=== PATIENT | male | born 1965 | race Caucasian/White ===

== ENCOUNTER 2024-06-13 14:57 | Emergency (ER) | payer BC, SELFPAY ==
[2024-06-13 15:00] VITALS: BP 159/107
[2024-06-13 15:15] LABS: % Basophils 0.9 % (0-2); % Eosinophils 3.6 % (0-6); % Immature Granulocytes 0.4 % (0-0.5); % Lymphocytes 21.8 % (20.5-51.1); % Neutrophils 65.3 % (42.2-75.2); Absolute Basophils 0.1 10^3/uL (0-0.2); Absolute Eosinophils 0.2 10^3/uL (0-0.7); Absolute Lymphocytes 1.5 10^3/uL (1.2-3.4); Absolute Monocytes 0.5 10^3/uL (0.1-0.6); Absolute Neutrophils 4.4 10^3/uL (1.4-6.5); Hematocrit 41.4 % (39.0-52.0); Hemoglobin 14.9 g/dL (13.0-18.0); Mean Platelet Volume 10.2 fL (7.4-10.4); Nucleated Red Blood Cells % 0 % (-); Platelet Count 343 10^3/uL (130-400); Red Blood Cell Count 4.65 10^6/uL (4.70-6.10); Red Cell Dist. Width 12.4 % (11.5-14.5); White Blood Cell Count 6.7 10^3/uL (4.8-10.8)
[2024-06-13 15:29] LABS: ALT (SGPT) 34 U/L (0-50); AST (SGOT) 28 U/L (17-59); Albumin 4.9 g/dl (3.5-5.0); Alkaline Phosphatase 56 U/L (38-126); Blood Urea Nitrogen 14 mg/dl (9-20); Calcium 9.5 mg/dl (8.4-10.2); Carbon Dioxide 29 mmol/L (22-30); Chloride 94 mmol/L (98-107); Glucose 206 mg/dl (70-99); Potassium 4.5 mmol/L (3.5-5.1); Sodium 134 mmol/L (135-145); Total Bilirubin 0.7 mg/dl (0.2-1.3); Total Protein 7.4 g/dl (6.3-8.2); eGFR > 60.00
[2024-06-13 15:40] LABS: Troponin I < 0.012 ng/ml
--- NOTE | 2024-06-13 17:16 | ED.GENMED ---
History of Present Illness
General
Chief Complaint: Musculo-Skeletal Complaint
Time Seen by Provider: 06/13/24 16:39
History of Present Illness
History of Present Illness:
58-year-old male presents to the emergency department for evaluation of left trapezius pain rating to the left shoulder and left arm ongoing for the past 3 weeks, describes intermittent paresthesias as well. No chest pain or shortness of breath.
No fevers or chills. Denies any known trauma or injuries
Past History
Past History
ED Past Medical History: None
ED Past Surgical History: None
Social History
Tobacco: Smoker
Personal: Single
Living: with family
Review of Systems
Review of Systems
Allergies reviewed?: Yes
All Other Systems: ROS reviewed and negative except as documented in HPI and ROS
Phy Exam
Physical Exam
Physical Exam:
GEN: Well appearing, NAD, WDWN
HEENT: Oral mucosa moist, no scleral icterus
Cardiac: Regular rate and rhythm, no murmurs
Lung: No respiratory distress, no tachypnea
MSK: No gross deformity or injuries. Normal range of motion of the left shoulder, bilateral upper extremity strength and sensation 5/5 in all matos
Skin: Good color, no pallor or jaundice, no rashes
Neuro: AO x3, moves all extremities freely
Psych: Calm, cooperative
Course
Orders/Labs/Results
Orders:
Orders
06/13/24 14:59
Electrocardiogram (*1) Urgent
Reason for Study: Other
Other Reason for Exam: left arm tingling
EKG- Treatment ONCE
06/13/24 15:09
Complete Blood Count/With Diff Urgent
Comprehensive Metabolic Panel Urgent
Troponin I Urgent
Abnormal Lab Results
06/13/24
15:09
RBC 4.65 L 10^6/uL
(4.70-6.10)
MCH 32.0 H pg
(27.0-31.0)
Sodium 134 L mmol/L
(135-145)
Chloride 94 L mmol/L
(98-107)
Glucose 206 H mg/dl
(70-99)
06/13/24 15:09
06/13/24 15:09
Vital Signs
Initial and Last Documented VS:
Initial Vital Signs
Temp Pulse Resp Pulse Ox
97.8 F 88 18 97
06/13/24 14:59 06/13/24 14:59 06/13/24 14:59 06/13/24 14:59
Last Documented Vital Signs
Temp Pulse Resp BP Pulse Ox
97.8 F 64 18 159/107 100
06/13/24 14:59 06/13/24 15:00 06/13/24 15:00 06/13/24 15:00 06/13/24 15:00
MDM/Problems Addressed
MDM/Problems Addressed:
Workup is reassuring, the patient's symptoms are most likely cervical radiculopathy or brachial neuritis, low clinical suspicion for cardiovascular disease, as he has been taking NSAIDs without improvement we will trial a course of steroids
*Critical Care Note
Total Time (30-74mins, 75-104mins- exclusive of procedures): Not Applicable
ED Attending Note
-
Portions of this chart may have been created with voice recognition software.� Occasional wrong word or��sound alike� substitutions may have occurred due to the inherent limitations of voice recognition software.
Discharge Plan
Departure
Patient Disposition: Home (Routine Discharge)
Date of Disposition: 06/13/24
Time of Disposition: 17:17
Patient with high blood pressure during this ER visit?: No
Discharge Problem:
Brachial neuritis
Instructions: Radiculopathy (DC)
Prescriptions:
New
methylprednisolone [Methylpred DP] 4 mg tablets,dose pack
See Rx Instructions .ROUTE .COMPLEX Qty: 21 0RF
Rx Instructions:
orally per package directions
No Action
cephalexin 500 MG capsule
500 mg PO QID Qty: 40 0RF
Ativan: 5 MG
5 mg PO DAILY
Prozac: 40 MG
40 mg PO DAILY
tramadol 50 MG tablet
50 mg PO Q6HPRN PRN (Reason: pain) Qty: 12 0RF
Referrals:
Alejo Blakely DO [Family Provider] -
Interventions
Interventions:
*Risk Screen - Suicide Last Done: 06/13/24 15:02
*General Assessment Last Done: 06/13/24 15:02
*Neglect/Abuse Screening Last Done: 06/13/24 15:02
ED- Fall Risk Assessment Last Done: 06/13/24 17:26
*ED COVID-19 Vaccine History Last Done: 06/13/24 16:55
*Nursing Disposition Last Done: 06/13/24 17:26
ED-Musculoskeletal Assessment Last Done: 06/13/24 16:55
Discharge Date and Time
Discharge Date/Time: 06/13/24 17:26
Print Language: SURINAMESE
== END 2024-06-13 17:26 | disposition home or self-care (01) ==
LOC: EMR 14:57
PROVIDERS: Student in an Organized Health Care Education/Training Program; EMERGENCY PHYSICIAN Emergency Medicine; FAMILY PHYSICIAN Family Medicine
DX: M54.12 Radiculopathy, cervical region (principal); F17.200 Nicotine dependence, unspecified, uncomplicated
CPT/HCPCS: 99283; 80053; 84484; 85025; 93005

== ENCOUNTER 2024-12-14 18:06 | Inpatient (IN) | payer BC, SELFPAY ==
[2024-12-14] VITALS (18 sets, daily range): BP systolic 100–159; BP diastolic 62–118; BMI 25.2; BMI 24.2
[2024-12-14 13:53] LABS: % Basophils 0.5 % (0-2); % Eosinophils 0.4 % (0-6); % Immature Granulocytes 0.5 % (0-0.5); % Lymphocytes 11.6 % (20.5-51.1); % Monocytes 7.1 % (1.7-9.3); % Neutrophils 79.9 % (42.2-75.2); Absolute Basophils 0.1 10^3/uL (0-0.2); Absolute Eosinophils 0.1 10^3/uL (0-0.7); Absolute Immature Granulocytes 0.1 10^3/uL (0-0.05); Absolute Lymphocytes 1.3 10^3/uL (1.2-3.4); Absolute Monocytes 0.8 10^3/uL (0.1-0.6); Hematocrit 45.4 % (39.0-52.0); Hemoglobin 16.8 g/dL (13.0-18.0); Mean Corpuscular Volume 89.2 fL (80.0-94.0); Mean Platelet Volume 10.8 fL (7.4-10.4); Nucleated Red Blood Cells % 0 % (-); Platelet Count 415 10^3/uL (130-400); Red Blood Cell Count 5.09 10^6/uL (4.70-6.10); Red Cell Dist. Width 11.9 % (11.5-14.5); White Blood Cell Count 11.3 10^3/uL (4.8-10.8)
[2024-12-14 14:03] LABS: Acetaminophen < 10 ug/ml (10-30); Blood Urea Nitrogen 17 mg/dl (9-20); Calcium 10.1 mg/dl (8.4-10.2); Carbon Dioxide 22 mmol/L (22-30); Chloride 97 mmol/L (98-107); Estimated Creatinine Clearance 80 ml/min; Glucose 251 mg/dl (70-99); Potassium 4.3 mmol/L (3.5-5.1); Salicylate < 1.0 mg/dl (2.0-20.0); Sodium 132 mmol/L (135-145); eGFR > 60.00
[2024-12-14 14:07] LABS: Alcohol None Detected
[2024-12-14] MEDS: CARDIZEM 20 MG IV (14:08)
--- NOTE | 2024-12-14 14:31 | ED.GENMED ---
History of Present Illness
<Luna Santos DO - Last Filed: 12/16/24 06:15>
General
Chief Complaint: Crisis Evaluation
Time Seen by Provider: 12/14/24 13:28
History of Present Illness
History of Present Illness:
59-year-old male with history of hyperlipidemia and prediabetes presenting to the emergency department for lightheadedness and pressure in his head. Reports that he was in the shower today and felt pressure behind his head and also felt lightheaded
like he was going to pass out. He got out of the shower, went to [facility] [place], and had to hold onto the wall to help him ambulate. He went home and felt that symptoms were improving, so came to the hospital. Does admit to drinking some alcohol last
evening, however only 3 beers. Denies any alcohol ingestion today. Denies any chest pain or difficulty breathing. Denies palpitations. Denies abdominal pain or GI symptoms. Denies any known cardiac issues. Additionally notes that he lost his
job unexpectedly 3 days ago so has been having depressive thoughts and suicidal ideations. On Saturday evening, was thinking about killing himself, however called for help and was given outpatient resources which she has not yet established. He
notes that he is feeling better from a mental health perspective. Denies additional acute medical complaints
Past History
<Luna Santos DO - Last Filed: 12/16/24 06:15>
Past History
ED Past Medical History: None
ED Past Surgical History: None
Social History
Tobacco: Smoker
Personal: Single
Living: with family
Phy Exam
<Luna Santos DO - Last Filed: 12/16/24 06:15>
Physical Exam
Physical Exam:
General: Well-appearing, no clinical signs of dehydration, nontoxic and in no acute distress
HEENT: protecting airway
Neck: appears supple
CV: Irregularly irregular rhythm, tachycardic, no evidence of cyanosis
Resp: No accessory muscle use, no increased work of breathing, lungs clear to auscultation bilaterally
Abd: no tenderness to palpation, normal bowel sounds
Extremities: No deformities, no swelling
Neuro: alert, no focal neurologic deficit
: deferred
Rectal: deferred
Psych: Normal affect
Skin: Intact
Scores
<Luna Santos, DO - Last Filed: 12/16/24 06:15>
[id number] Score for Afib Stroke Risk
Age in Years (65=0, 65-74=1, >/=75=2): <65
Sex (Female=+1): Male
Congestive Heart Failure History (Yes=+1): No
Hypertension History (Yes=+1): No
Stroke/TIA/Thromboembolism History (Yes=+2): No
Vascular Disease History (Yes=+1): No
Diabetes Mellitus (Yes=+1): Yes
Score: 1
Anticoagulation Recommendations: Consider anticoagulation (as validated in nonvalvular fib)
<Hans Egan, DO - Last Filed: 12/14/24 22:42>
[id number] Score for Afib Stroke Risk
Score: 1
Anticoagulation Recommendations: Consider anticoagulation (as validated in nonvalvular fib)
Course
<Luna Santos, DO - Last Filed: 12/16/24 06:15>
Orders/Labs/Results
Orders:
Orders
12/14/24 Breakfast
2000 calorie (17 carb) Diabetic
At Your Request: Full Participation
12/14/24 12:55
Electrocardiogram (*1) Urgent
Reason for Study: Shortness of Breath
EKG- Treatment ONCE
12/14/24 13:39
Acetaminophen Urgent
Alcohol Urgent
Basic Metabolic Panel Urgent
Complete Blood Count/With Diff Urgent
Salicylate Urgent
12/14/24 13:56
Diltiazem HCl [Cardizem] 20 mg IV NOW STA
12/14/24 14:28
Diltiazem Extended Release [Cardizem Cd] 180 mg PO NOW STA
12/14/24 15:12
Electrocardiogram (*1) Urgent
Reason for Study: Atrial Fibrillation
12/14/24 16:48
Apixaban [Eliquis] 5 mg PO NOW STA
Diltiazem 125 mg/125 ml Nss [Cardizem] 125 mg in 125 ml IV NOW
Initial dose in mg/hr, then titrate:: 5
Titrate to keep:: Heart rate 80-100 bpm
Titrate by mg/hr:: 5 mg/hr
Frequency of titrations (minutes):: 15
Maximum dose in mg/hr:: 15
12/14/24 17:22
Admit/Transfer Patient As Directed
Co-Sign Provider:
Level of Care: Inpatient admission
Assign to:: IVU
Physician / Group: anna faulkner
Diagnosis: atrial fib with RVR
Reason for Hospitalization: atrial fib with RVR
Expected length of stay greater than two midnights?: Yes
ELOS- Estimated Length of Stay in days: 3
I certify the patient meets the requirements for IP care: Yes
12/14/24 17:23
PRN Pain Medication Management As Directed
May give lesser potent ordered pain med per pt: Yes
preference::
Protocol:: Medication orders for pain may be administered in a
manner that supports deferring to patient preference
when the pt is:
- Requesting an ordered lesser potent pain medication.
Least to most potent pain medications are defined
as: acetaminophen < NSAID < tramadol < opioids
(morphine, oxycodone, hydromorphone).
- Requesting a lesser dose of the same medication IF
ORDERED.
- Requesting a less intrusive route of administration
if both routes are prescribed by the provider (PO <
IV).
12/14/24 17:25
Code Status As Directed
Resuscitation Status: Full Code
12/14/24 17:46
DIETARY IP CONSULT Routine
Reason for Consult: Nutrition support, possible refeeding guidelines
12/14/24 18:11
Troponin I Q6H
12/14/24 20:55
0.9% Sodium Chloride [Nss (Preservative Free)] See Protocol IV PRN PRN
Acetaminophen [Tylenol] 650 mg PO Q4HPRN PRN
Bisacodyl [Dulcolax] 10 mg RECTAL [id number] PRN
Dextrose 50%-Water [Dextrose 50% Syringe] 12.5 grams IV [id number] PRN
Docusate W/Senna [Senokot-S] 1 tablet PO BIDPRN PRN
FOLic ACID [Folvite] 1 mg 0.9% Sodium Chloride 50 ml [Nss] 50 ml IV DAILYPRN
Glucagon [GlucaGen] 1 mg IM PRN PRN
Lorazepam [Ativan] 1 mg IV Q1HPRN PRN
Lorazepam [Ativan] 1 mg PO Q2HPRN PRN
Lorazepam [Ativan] 2 mg IV Q1HPRN PRN
Polyethylene Glycol Powder [Miralax] 17 grams PO DAILYPRN PRN
Thiamine Injection 200 mg IV Q12
12/14/24 20:55
CARDIOLOGY CONSULT Routine
Consulting Provider: Nino Douglas
Was physician already notified: Yes
Case Management Consult Once
Case Management Consult: Other
Comment: Substance abuse counseling
B-Hydroxybutyrate Urgent
GGTP Urgent
Magnesium Urgent
PTT Urgent
Phosphorus Urgent
Prothrombin Time Urgent
Urinalysis Routine
Date Specimen was Collected: 12/15/24
Time Specimen was Collected: 01:01
Urine Drug Abuse Screen Routine
Date Specimen was Collected: 12/15/24
Time Specimen was Collected: 01:01
Activity As Directed
Activity Level: As Tolerated
Bedside Glucose Monitoring As Directed
Frequency: AC&HS
Additional Instructions:: Change to q6h if pt on TPN, tube feeding or not eating
MSAS SCORE As Directed
MSAS Score 0-4: Repeat MSAS every 2 hours until 0-4 for three consecutive assessments, then every 4 hours x 48
hours.
MSAS Score 5-7: For MILD withdrawl symptoms. Repeat MSAS and RASS every 2 hours
MSAS Score 8-11: For MODERATE withdrawal symptoms. Repeat MSAS and RASS every 1 hour. Consider ICU or IMU
level of care.
MSAS Score > 11: For SEVERE withdrawal symptoms. Repeat MSAS and RASS every 1 hour. Notify provider, consider
ICU level of care.
MSAS Additional Instructions: If no improvement or no decrease in score from severe to moderate within 12
hours, consult psychiatry
MSAS Notify Provider: Notify provider if patient requires more than 10 mg of Lorazepam in eight hour period.
Vital Signs As Directed
Frequency: Per unit guidelines
12/14/24 22:00
Rosuvastatin Calcium [Crestor] 10 mg PO HS
12/15/24 00:15
Troponin I Q6H
12/15/24 05:00
Complete Blood Count/No Diff IN AM
Glycohemoglobin (HgbA1c) IN AM
12/15/24 Breakfast
NPO
Allow oral meds: Yes
Allow clear liquids: No
NPO for procedure after (time): 12/15/2024 0000
12/15/24 07:30
Insulin Aspart Corrective Low [Novolog Flexpen-Low Resistance] See Protocol SC AC
12/15/24 08:00
Apixaban [Eliquis] 5 mg PO BID
Diphenhydramine [Benadryl] 25 mg PO DAILY
FOLic ACID [Folvite] 1 mg PO DAILY
Fluoxetine HCl [Prozac] 20 mg PO DAILY
Lorazepam [Ativan] 0.25 mg PO DAILY
Multivitamin [Theragran] 1 tablet PO DAILY
Pantoprazole [Protonix] 40 mg PO DAILY
12/17/24 20:00
Thiamine HCl [Vitamin B1] 100 mg PO BID
Abnormal Lab Results
12/14/24
13:39
WBC 11.3 H 10^3/uL
(4.8-10.8)
MCH 33.0 H pg
(27.0-31.0)
Plt Count 415 H 10^3/uL
(130-400)
MPV 10.8 H fL
(7.4-10.4)
Abs Immat Gran (auto) 0.1 H 10^3/uL
(0-0.05)
Absolute Neuts (auto) 9.0 H 10^3/uL
(1.4-6.5)
Absolute Monos (auto) 0.8 H 10^3/uL
(0.1-0.6)
Neutrophils % 79.9 H %
(42.2-75.2)
Lymphocytes % 11.6 L %
(20.5-51.1)
Sodium 132 L mmol/L
(135-145)
Chloride 97 L mmol/L
(98-107)
Glucose 251 H mg/dl
(70-99)
Salicylates < 1.0 L mg/dl
(2.0-20.0)
Acetaminophen < 10 L ug/ml
(10-30)
12/14/24 13:39
12/14/24 13:39
Vital Signs
Initial and Last Documented VS:
Initial Vital Signs
Temp Pulse Resp BP Pulse Ox
97.7 F 68 18 129/79 96
12/14/24 12:58 12/14/24 12:58 12/14/24 12:58 12/14/24 12:58 12/14/24 12:58
Last Documented Vital Signs
Temp Pulse Resp BP Pulse Ox
98.3 F 68 12 132/71 99
12/15/24 16:07 12/15/24 18:24 12/15/24 11:40 12/15/24 18:24 12/15/24 16:45
<Hans Egan, DO - Last Filed: 12/14/24 22:42>
Orders/Labs/Results
Orders:
Orders
12/14/24 Breakfast
2000 calorie (17 carb) Diabetic
At Your Request: Full Participation
12/14/24 12:55
Electrocardiogram (*1) Urgent
Reason for Study: Shortness of Breath
EKG- Treatment ONCE
12/14/24 13:39
Acetaminophen Urgent
Alcohol Urgent
Basic Metabolic Panel Urgent
Complete Blood Count/With Diff Urgent
Salicylate Urgent
12/14/24 13:56
Diltiazem HCl [Cardizem] 20 mg IV NOW STA
12/14/24 14:28
Diltiazem Extended Release [Cardizem Cd] 180 mg PO NOW STA
12/14/24 15:12
Electrocardiogram (*1) Urgent
Reason for Study: Atrial Fibrillation
12/14/24 16:48
Apixaban [Eliquis] 5 mg PO NOW STA
Diltiazem 125 mg/125 ml Nss [Cardizem] 125 mg in 125 ml IV NOW
Initial dose in mg/hr, then titrate:: 5
Titrate to keep:: Heart rate 80-100 bpm
Titrate by mg/hr:: 5 mg/hr
Frequency of titrations (minutes):: 15
Maximum dose in mg/hr:: 15
12/14/24 17:22
Admit/Transfer Patient As Directed
Co-Sign Provider:
Level of Care: Inpatient admission
Assign to:: IVU
Physician / Group: anna faulkner
Diagnosis: atrial fib with RVR
Reason for Hospitalization: atrial fib with RVR
Expected length of stay greater than two midnights?: Yes
ELOS- Estimated Length of Stay in days: 3
I certify the patient meets the requirements for IP care: Yes
12/14/24 17:23
PRN Pain Medication Management As Directed
May give lesser potent ordered pain med per pt: Yes
preference::
Protocol:: Medication orders for pain may be administered in a
manner that supports deferring to patient preference
when the pt is:
- Requesting an ordered lesser potent pain medication.
Least to most potent pain medications are defined
as: acetaminophen < NSAID < tramadol < opioids
(morphine, oxycodone, hydromorphone).
- Requesting a lesser dose of the same medication IF
ORDERED.
- Requesting a less intrusive route of administration
if both routes are prescribed by the provider (PO <
IV).
12/14/24 17:25
Code Status As Directed
Resuscitation Status: Full Code
12/14/24 17:46
DIETARY IP CONSULT Routine
Reason for Consult: Nutrition support, possible refeeding guidelines
12/14/24 18:11
Troponin I Q6H
12/14/24 20:55
0.9% Sodium Chloride [Nss (Preservative Free)] See Protocol IV PRN PRN
Acetaminophen [Tylenol] 650 mg PO Q4HPRN PRN
Bisacodyl [Dulcolax] 10 mg RECTAL [id number] PRN
Dextrose 50%-Water [Dextrose 50% Syringe] 12.5 grams IV [id number] PRN
Docusate W/Senna [Senokot-S] 1 tablet PO BIDPRN PRN
FOLic ACID [Folvite] 1 mg 0.9% Sodium Chloride 50 ml [Nss] 50 ml IV DAILYPRN
Glucagon [GlucaGen] 1 mg IM PRN PRN
Lorazepam [Ativan] 1 mg IV Q1HPRN PRN
Lorazepam [Ativan] 1 mg PO Q2HPRN PRN
Lorazepam [Ativan] 2 mg IV Q1HPRN PRN
Polyethylene Glycol Powder [Miralax] 17 grams PO DAILYPRN PRN
Thiamine Injection 200 mg IV Q12
12/14/24 20:55
CARDIOLOGY CONSULT Routine
Consulting Provider: Nino Douglas
Was physician already notified: Yes
Case Management Consult Once
Case Management Consult: Other
Comment: Substance abuse counseling
B-Hydroxybutyrate Urgent
GGTP Urgent
Magnesium Urgent
PTT Urgent
Phosphorus Urgent
Prothrombin Time Urgent
Urinalysis Routine
Date Specimen was Collected: 12/15/24
Time Specimen was Collected: 01:01
Urine Drug Abuse Screen Routine
Date Specimen was Collected: 12/15/24
Time Specimen was Collected: 01:01
Activity As Directed
Activity Level: As Tolerated
Bedside Glucose Monitoring As Directed
Frequency: AC&HS
Additional Instructions:: Change to q6h if pt on TPN, tube feeding or not eating
MSAS SCORE As Directed
MSAS Score 0-4: Repeat MSAS every 2 hours until 0-4 for three consecutive assessments, then every 4 hours x 48
hours.
MSAS Score 5-7: For MILD withdrawl symptoms. Repeat MSAS and RASS every 2 hours
MSAS Score 8-11: For MODERATE withdrawal symptoms. Repeat MSAS and RASS every 1 hour. Consider ICU or IMU
level of care.
MSAS Score > 11: For SEVERE withdrawal symptoms. Repeat MSAS and RASS every 1 hour. Notify provider, consider
ICU level of care.
MSAS Additional Instructions: If no improvement or no decrease in score from severe to moderate within 12
hours, consult psychiatry
MSAS Notify Provider: Notify provider if patient requires more than 10 mg of Lorazepam in eight hour period.
Vital Signs As Directed
Frequency: Per unit guidelines
12/14/24 22:00
Rosuvastatin Calcium [Crestor] 10 mg PO HS
12/15/24 00:15
Troponin I Q6H
12/15/24 05:00
Complete Blood Count/No Diff IN AM
Glycohemoglobin (HgbA1c) IN AM
12/15/24 Breakfast
NPO
Allow oral meds: Yes
Allow clear liquids: No
NPO for procedure after (time): 12/15/2024 0000
12/15/24 07:30
Insulin Aspart Corrective Low [Novolog Flexpen-Low Resistance] See Protocol SC AC
12/15/24 08:00
Apixaban [Eliquis] 5 mg PO BID
Diphenhydramine [Benadryl] 25 mg PO DAILY
FOLic ACID [Folvite] 1 mg PO DAILY
Fluoxetine HCl [Prozac] 20 mg PO DAILY
Lorazepam [Ativan] 0.25 mg PO DAILY
Multivitamin [Theragran] 1 tablet PO DAILY
Pantoprazole [Protonix] 40 mg PO DAILY
12/17/24 20:00
Thiamine HCl [Vitamin B1] 100 mg PO BID
Abnormal Lab Results
12/14/24
13:39
WBC 11.3 H 10^3/uL
(4.8-10.8)
MCH 33.0 H pg
(27.0-31.0)
Plt Count 415 H 10^3/uL
(130-400)
MPV 10.8 H fL
(7.4-10.4)
Abs Immat Gran (auto) 0.1 H 10^3/uL
(0-0.05)
Absolute Neuts (auto) 9.0 H 10^3/uL
(1.4-6.5)
Absolute Monos (auto) 0.8 H 10^3/uL
(0.1-0.6)
Neutrophils % 79.9 H %
(42.2-75.2)
Lymphocytes % 11.6 L %
(20.5-51.1)
Sodium 132 L mmol/L
(135-145)
Chloride 97 L mmol/L
(98-107)
Glucose 251 H mg/dl
(70-99)
Salicylates < 1.0 L mg/dl
(2.0-20.0)
Acetaminophen < 10 L ug/ml
(10-30)
12/14/24 13:39
12/14/24 13:39
Vital Signs
Initial and Last Documented VS:
Initial Vital Signs
Temp Pulse Resp BP Pulse Ox
97.7 F 68 18 129/79 96
12/14/24 12:58 12/14/24 12:58 12/14/24 12:58 12/14/24 12:58 12/14/24 12:58
Last Documented Vital Signs
Temp Pulse Resp BP Pulse Ox
98.3 F 68 12 132/71 99
12/15/24 16:07 12/15/24 18:24 12/15/24 11:40 12/15/24 18:24 12/15/24 16:45
<Luna Santos DO - Last Filed: 12/16/24 06:15>
MDM/Problems Addressed
MDM/Problems Addressed:
59-year-old male with history of hyperlipidemia and prediabetes presenting for lightheadedness and pressure behind his head. Vital signs on arrival significant for tachycardia.
On exam, patient is resting comfortably, no acute distress. Patient arrives with elevated heart rate in the 150s. EKG confirms A-fib with RVR. No prior history. Do suspect this could be contributing to patient's lightheadedness. Regarding the
pressure in his head, no focal neurologic deficits, denies any visual changes. No reported injury to the head or neck. Symptoms are not reproduced with any range of motion exercises. Without present concern for central neurologic process.
Suspect that the pressure he is feeling could be secondary to his elevated heart rate. At this time do not feel patient is a candidate for cardioversion. Denies any palpitations or chest pain, no clear insight into when his irregular heart rate
may have started. Will administer diltiazem and reassess for improvement. Also obtain laboratory analysis. Will consult with cardiology. Regarding report of SI, denies any present plan. Will consult with crisis.
15:00 - Per cardiology, will come evaluate. Heart rate has responded to Cardizem. Diltiazem ER oral dose ordered.
15:30- Cardiology to bedside, pending recs
16:00 - Crisis to bedside, pending recs
<Luna Santos, DO - Last Filed: 12/16/24 06:15>
*EKG
Interpreted by ED Provider?: Yes
EKG Intrepretation Date: 12/14/24
EKG Intrepretation Time: 15:13
Interpretation: abnormal
Comparison EKG: changes noted
Heart Rate: 150
Rate: tachycardiac
Rhythm: a-fib
Epsom: normal axis
QRS Pattern: normal QRS
Ischemia: non-specific ST changes
*Critical Care Note
Total Time (30-74mins, 75-104mins- exclusive of procedures): Not Applicable
<Hans Egan, DO - Last Filed: 12/14/24 22:42>
*Pulse Oximetry
Patient hypoxic: no
<Hans Egan, DO - Last Filed: 12/14/24 22:42>
Update Note
Update Note:
Patient seen and evaluated by cardiology, Dr. Douglas and will admit to hospitalist for IV diltiazem, and plan for KATT and cardioversion in a.m.
ED Attending Note
<Luna Santos DO - Last Filed: 12/16/24 06:15>
-
Portions of this chart may have been created with voice recognition software.� Occasional wrong word or��sound alike� substitutions may have occurred due to the inherent limitations of voice recognition software.
Discharge Plan
Departure
Patient Disposition: Admit
Date of Disposition: 12/14/24
Time of Disposition: 16:51
Admit to: IVU
Presentation/result/management discussed w/ accepting MD/DO: Hospitalist
Patient with high blood pressure during this ER visit?: No
Condition: Good
Discharge Problem:
Atrial fibrillation with rapid ventricular response
Interventions
Interventions:
*General Assessment Last Done: 12/14/24 12:58
*Neglect/Abuse Screening Last Done: 12/14/24 12:58
*ED- Fall Risk Assessment Last Done: 12/14/24 16:00
*ED COVID-19 Vaccine History Last Done: 12/14/24 13:39
*Nursing Disposition Last Done: 12/14/24 20:50
ED-Psychological Assessment Last Done: 12/14/24 13:30
Discharge Date and Time
Discharge Date/Time: 12/14/24 20:50
[2024-12-14] MEDS: CARDIZEM CD 180 MG PO (14:54)
--- NOTE | 2024-12-14 16:05 | CON.CAR ---
Addendum entered and electronically signed by Nino Douglas MD 12/14/24 18:03:
Attending addendum: Patient see and examined. PA note reviewed and findings confirmed by me. Briefly this is a 59 y/o gentleman who lost his job a few weeks ago. He presented to [facility] for evaluation feeling that he was having a
'nervous breakdown'. He reported that he was unsteady on his feet and actually 'contemplated suicide' at one point. He experienced some chest pressure with emotional stress and some vague chest pressure. On presentation, he was noted to be in
atrial fibrillation with a rapid ventricular response. He vapes and was a former smoker. He drinks 2-3 beers daily.
Physical Exam
GEN: AAO x 3. No acute distress. Pleasant and conversant
HEENT: NC/AT, sclera are anicteric, hearing and nares are normal. MMM
NECK: Supple. Normal JVP
LUNGS: Clear to bases bilaterally. No wheezing or rhonchi
CV: Irreg Irreg rate and rhythm Normal S1/S2. Murmur: None
ABD : Soft, NT, ND, No HSM. Bowel sounds are present.
EXT: No CCE
NEURO: No focal neurologic deficits
RECOMMENDATIONS:
-Newly diagnosed atrial fibrillation
Check TSH if not done
Check echocardiogram
Rate control
Planned KATT cardioversion
Should treat with OAC for 1 month given [id number] score of 0: After 1 month can decide aspirin vs OAC depending on results of additional workup.
-Chest discomfort:
Likely related to afib but will check troponin
-Depression / Crisis eval / Daily alcohol
Hospitalist eval.
Original Note:
Consultation
Consultation Request
Date/Time Consultation Requested: 12/14/2024
Date/Time Consultation Performed: 12/14/2024
Requesting Provider: Dr. Santos in the ER
Performing Provider: Dr. Douglas
Reason for Consultation: Newly diagnosed A-fib of unclear duration
Medical History
-
History of Present Illness:
Patient came to [facility] today for new symptoms of unsteadiness was found to have newly diagnosed A-fib prompting cardiology consultation. Patient unexpectedly lost his job 2 weeks ago and describes himself as being laid off. About a week ago he
started with increasing stress and saw the nurse through his union who checked his vital signs and told patient they were normal. To help deal with the stress the patient has been exercising more including walking and hiking, but no trouble keeping
up with this activity. Patient denies any CP, DESHPANDE or palpitations. Today the patient was planning on going to the unemployment office to file for benefits and he felt that his stress levels were the highest they have been, while in the shower he
felt a sudden tightness in the back of his neck and felt unsteady. He was able to get out of the shower and then in his car drove to [facility] to get himself some coffee and donuts, but this did not make him feel any better. Patient had ongoing
unsteadiness and so we came to [facility] and was found to be in A-fib with RVR. Incidentally the patient did inform ER staff that he had been dealing with increased depression and anxiety and so this was labeled a 'crisis' visit, but patient says he
actually has resources lined up including starting an intense group therapy session in [place] tomorrow. He is unaware of A-fib and again denies palpitations. No previous cardiology and no previous cardiac testing.
PMH:
EtOH use disorder, daily drinker
Smoker, now vaping tobacco exclusively
Prediabetes
Past Medical History
Past Medical History: Other (In HPI)
Past Surgical History: None
Social History
Tobacco: Smoker (Started smoking at age 13 and for the last 5 years is vaping tobacco)
Alcohol: Daily (He drinks either 3 beers a day or 2 beers and a glass of wine)
Drug: None
Personal: Single
Living: Alone
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
Family History
Family History: Diabetes and Other (Mother with complications of diabetes when patient was only 11)
Allergies / Home Medications
Allergy/AdvReac Type Severity Reaction Status Date / Time
No Known Allergies Allergy Verified 12/14/24 12:58
�Medication �Instructions �Recorded �Confirmed �Type
cephalexin 500 mg capsule 500 mg PO QID #40 caps 07/20/10 Rx
Ativan: 5 mg PO DAILY 08/03/12 08/03/12 History
Prozac: 40 mg PO DAILY 08/03/12 08/03/12 History
tramadol 50 mg tablet 50 mg PO Q6HPRN PRN pain #12 tabs 08/03/12 Rx
methylprednisolone 4 mg tablets in See Rx Instructions PO .COMPLEX 06/13/24 Rx
a dose pack (Methylpred DP) #21 ea
Review of Systems
-
History Source: Patient
All other systems: Negative unless noted
Physical Exam
Vital Signs
Temp Pulse Resp BP Pulse Ox
97.7 F 80 23 100/66 95
12/14/24 12:58 12/14/24 14:54 12/14/24 14:45 12/14/24 14:54 12/14/24 14:45
GEN: NAD. AAOx3
HEENT: EOMI, MMM
LUNGS: RA. CTA B/L, no wheeze
CV: Afib on tele. Irreg irreg, S1/S2, no murmur
ABD: soft, BS+, NT, ND
EXT: No clubbing, cyanosis, lesions or edema B/L
NEURO: Gross non-focal
SKIN: Warm, dry and pink. No rash
Lab Results
12/14/24 13:39
12/14/24 13:39
Impression / Plan
-
PCP: Dr. Dannie Blakely
Card: None
Impression:
Presented to [facility] with unsteady gait and admitted with newly diagnosed A-fib 12/14/2024
Newly diagnosed A-fib with RVR of unclear duration
EtOH use disorder, daily drinker
Smoker, now vaping tobacco exclusively
Prediabetes
Plan:
-Patient came to [facility] today for new symptoms of unsteadiness was found to have newly diagnosed A-fib prompting cardiology consultation. Patient unexpectedly lost his job 2 weeks ago and describes himself as being laid off. About a week ago he
started with increasing stress and saw the nurse through his union who checked his vital signs and told patient they were normal. To help deal with the stress the patient has been exercising more including walking and hiking, but no trouble keeping
up with this activity. Patient denies any CP, DESHPANDE or palpitations. Today the patient was planning on going to the unemployment office to file for benefits and he felt that his stress levels were the highest they have been, while in the shower he
felt a sudden tightness in the back of his neck and felt unsteady. He was able to get out of the shower and then in his car drove to [facility] to get himself some coffee and donuts, but this did not make him feel any better. Patient had ongoing
unsteadiness and so we came to [facility] and was found to be in A-fib with RVR. Incidentally the patient did inform ER staff that he had been dealing with increased depression and anxiety and so this was labeled a 'crisis' visit, but patient says he
actually has resources lined up including starting an intense group therapy session in [place] tomorrow. He is unaware of A-fib and again denies palpitations. No previous cardiology and no previous cardiac testing.
-ECG reviewed by me shows A-fib with RVR
-Talked with patient about pathophysiology of A-fib and natural course of the disease. We talked about rate control versus rhythm control and specifically we talked about how these 2 different approaches may impact him currently as he was initially
unsure about his health insurance status. In the meantime the patient was able to talk to his accounts payable representative and he has insurance until 01/2025. Patient is therefore interested in our original recommendation which was admission overnight with
KATT/CV in the a.m. and moving towards rhythm control strategy
-Recommend admission and NPO after midnight for procedure in AM
-Patient can use the co-pay card for as long as his has medical insurance and save the 1 month free coupon until he no longer has his insurance. Thereafter he may need to transition to warfarin
-Await EF and any evidence of valve disease by KATT results tomorrow
-No ischemic changes on ECG
--- NOTE | 2024-12-14 16:42 | CM ---
ED CM consulted by cardio
Pt noted his insurance set to term tomorrow as he was laid off from job
If admitted today, questioning if [facility] policy will cover admission
Call to [facility] [phone]
Provider services unable to determine
Instructed pt to call member services as he is noted to be active without a term date
CM later advised that pt called his union rep and coverage until end of January 2025
--- NOTE | 2024-12-14 16:55 | HPS.HSE ---
Family Physician
-
Family Physician: Alejo Blakely
Chief Complaint
-
unsterady
History of Present Illness
59 year old with PMH for depression, GERD, HLD, DM presented with neck tightness while taking shower. as he got out off shower, he felt wobbly on his feet. he was very unsteady. he was able to drive himself to [facility]. he is under stress since he lost his job or december 04. he felt very depressed on Saturday and wanted to kill himself on Saturday but hanging himself on the tree, but he was able to reach help line and he was supposed to start intense group
therapy from tomorrow. patient denied palpitation, chest pain. he hikes every day with no difficulty. denied sob. denied BOUDREAUX, dizzy or syncope. denied abdominal pain,n,v,d. denied dysuria or hematuria.
Upon arrival patient was noted in A-fib with RVR. Initiated on Raymundo Loyola. Admitted for further management
Medical History
Past Medical History
Past Medical History: Reports Other
Additional Past Medical History:
Depression, anxiety, GERD, hyperlipidemia, diabetes
Past Surgical History: Reports None
Social History
Tobacco: Former Smoker
Alcohol: Daily (2-3 beers)
Drug: None
Personal: Single
Living: Alone
Family History
Family History: Not pertinent
Allergies / Home Medications
Allergies reflects when Allergies were last updated in [facility].
Home Medications with original date entered in [facility]
Allergy/Medication List:
Allergies
Allergy/AdvReac Type Severity Reaction Status Date / Time
No Known Allergies Allergy Verified 12/14/24 12:58
Home Medications
fluoxetine 20 mg capsule 20 mg PO DAILY 08/03/12
lorazepam 0.5 mg tablet 0.25 mg PO DAILY 11/18/12
diphenhydramine HCl 25 mg capsule (Benadryl) 25 mg PO DAILY 12/14/24
omeprazole magnesium 20 mg tablet,delayed release (Prilosec OTC) 20 mg PO DAILY 12/14/24
rosuvastatin 10 mg tablet 10 mg PO HS 12/14/24
semaglutide 7 mg tablet (Rybelsus) 7 mg PO DAILY 12/14/24
therapeutic multivitamin 1 tab PO DAILY 12/14/24
Review of Systems
-
Constitutional: Reports No Symptoms
EENT: Reports No Symptoms
Respiratory: Reports No Symptoms
Cardiac: Reports No Symptoms
Abdomen/GI: Reports No Symptoms
: Reports No Symptoms
Musculoskeletal: Reports No Symptoms
Skin: Reports No Symptoms
Neurological: Reports No Symptoms and Other (Off balance)
Endocrine: Reports No Symptoms
Hematologic/Lymphatic: Reports No Symptoms
Psych: Reports No Symptoms and Depression
Physical Exam
Vital Signs
Vital Signs
Temp Pulse Resp BP Pulse Ox
97.7 F 80 23 100/66 95
12/14/24 12:58 12/14/24 14:54 12/14/24 14:45 12/14/24 14:54 12/14/24 14:45
Physical Exam
General: Well Developed, Well Nourished and No Apparent Distress
HEENT: NormoCephalic, Moist mucous membranes and Atraumatic
Respiratory: Clear
Cardiac: Irregular Rhythm and Tachycardia; No Murmur or Rub
GI: Soft, Non Tender, Non Distended and Normal Bowel Sounds; No Organomegaly
Rectal: Deferred by Provider
Musculoskeletal: No Clubbing, No Cyanosis and No Edema
Skin: No Rash
Neuro: AO x 3 and Nonfocal/grossly intact
Psych: Calm
Laboratory Results
-
12/14/24 13:39
12/14/24 13:39
Data Reviewed
-
Lab Data: Labs Reviewed by me
Impression/Plan
-
# A-fib with RVR
-On Cardizem drip
-Eliquis
-Plan for KATT/CV in a.m.
-Okay patient abdomen
-Cardiology consulted
# Leukocytosis likely stress reaction
-WBC is 11.3, patient is afebrile
-Continue to trend leukocytosis
# Pseudohyponatremia
-Corrected sodium is 136
# Type 2 diabetes with hyperglycemia
-Blood sugar elevated in ER
-On semaglutide as outpatient
- sliding scale
-Carb controlled diet until midnight
# Depression
# No active suicidal thoughts
-Ativan continued
-Crisis involved
#alcohol dependence
-protocol continued
-monitor MSAS score
# DVT prophylaxis
-Eliquis
# CODE STATUS
-Full code
[2024-12-14] MEDS: ELIQUIS 5 MG PO (17:08)
[2024-12-14] MEDS: CARDIZEM 125 IV (17:14)
--- NOTE | 2024-12-14 18:18 | W.PN.UPDATE ---
Update Note
Progress Note Update
This note serves as an addendum to the H&P by motor mechanic GAIL Suzy WILSON
HPI
59M HX depression, GERD, HLD, DM seen at ER :
- neck tightness while taking shower as he got out off shower, he felt wobbly on his feet. he was very unsteady
- was able to drive himself to [facility]
- Recent social stressors: lost his job or december 04 felt very depressed on Saturday and wanted to kill himself on Saturday by hanging - But he was able to reach help line and he was supposed to start intense group therapy from tomorrow.
ROS
- denied palpitation, chest pain
- hikes every day with no difficulty. denied sob. denied BOUDREAUX, dizzy or syncope. denied abdominal pain,n,v,d. denied dysuria or hematuria.
Upon arrival patient was noted in A-fib with RVR.
Initiated on Raymundo Loyola.
PHX: as above
Vital Signs
Temp Pulse Resp BP Pulse Ox
97.7 F 91 26 104/64 97
12/14/24 12:58 12/14/24 17:45 12/14/24 17:45 12/14/24 17:08 12/14/24 17:45
PE
Gen: NAD
HEENT: moist OM
Neck: supple
Lungs: CTA
Cor: Irregular
Abdomen: Non Tender, Non Distended and Normal Bowel Sounds
CRYOGENICS REPAIRER:AO x 3 and Nonfocal/grossly intact
MS:no edema
Psych: calm denied suicidal idation now
Abnormal Labs
12/14/24
13:39
WBC 11.3 H
MCH 33.0 H
Plt Count 415 H
MPV 10.8 H
Abs Immat Gran (auto) 0.1 H
Absolute Neuts (auto) 9.0 H
Absolute Monos (auto) 0.8 H
Neutrophils % 79.9 H
Lymphocytes % 11.6 L
Sodium 132 L
Chloride 97 L
Glucose 251 H
Salicylates < 1.0 L
Acetaminophen < 10 L
ASSESSMENT & PLAN
New fast A Fib
- c/w Diltiazem gtt
- Initiated Eliquis by ER
- Has plan for KATT/CV in AM
- NPO after MN
- [facility] Card consulted
Leukocytosis likely stress reaction
- WBC is 11.3, afebrile
- trend leukocytosis
Pseudohyponatremia
- Corrected sodium is 136
T2DM with hyperglycemia
- -On semaglutide as outpatient
- ISS low
-Carb controlled diet until midnight
Suicidal ideation repoted yesterday : currently denied any suicidal ideation
Report it was defused by self help line
HX Depression
- crisis involved and DC'd 1 to 1
- Ativan continued
ETOH dependence
- protocol continued
- monitor MSAS score
DVT Px: Eliquis
Full code
IP TLM
[2024-12-14 19:02] LABS: Troponin I 0.029 ng/ml
[2024-12-14 22:10] LABS: Glucose - Point of Care 177 mg/dl (70-99)
[2024-12-14] MEDS: CRESTOR 10 MG PO (23:13)
[2024-12-14] MEDS: THIAMINE INJECTION 200 MG IV (23:13)
--- NOTE | 2024-12-14 23:37 | PTCARENOTE ---
Received patient from ED on Cardizem gtt at 5mg/hr. Patient aaox3, able to make needs known. Denies pain. Patient confirms hx of depression and recent increase in depression r/to loss of his job after 20+ years. Patient confirms suicidal ideation
over past few days; states that he hikes often, and had a rope in his bag, looked up at a tree, and thought about hanging himself. Patient states that he cried, then called his therapist who he see's for depression and anxiety. Plan is for patient
to begin intense, outpatient treatment upon discharge. At this time patient denies SI and states that he has a plan to start outpatient therapy post discharge and is satisfied with the plan. Affect pleasant. MSAS 0 on admission, will continue to
screen.
Patient in nsr on the monitor with multiform pvcs at times. EKG obtained to verify nsr. Lungs cta throughout, pox 97%on ra. Bowel sounds active x4, patient assisted x1 to bathroom where he had bm. Patient is continent of bowel and bladder. Urinal at
bedside. patient has 18g in right hand with cardizem gtt at 5mg/hr. Will continue to monitor patient closely.
Patient brought medications from home. Medications sent to pharmacy, list placed in chart. Patient aware and in agreement.
[2024-12-15] VITALS (35 sets, daily range): BP systolic 90–142; BP diastolic 50–98; BMI 24.1
[2024-12-15 00:36] LABS: PT 15.5 Sec (11.4-14.6)
[2024-12-15 00:37] LABS: APTT 32.1 Sec (23.4-35.0)
[2024-12-15 01:10] LABS: GGTP 57 U/L (15-73); Magnesium 2.2 mg/dl (1.6-2.3); Phosphorus 3.9 mg/dl (2.5-4.5)
[2024-12-15 01:43] LABS: Urine Albumin 2+ (Neg - Trace); Urine Bilirubin Negative (Negative); Urine Character Clear (Clear); Urine Color Yellow; Urine Glucose 4+ (Negative); Urine Ketone Negative (Negative); Urine Leukocyte Negative (Negative); Urine Nitrite Negative (Negative); Urine Occult Blood 1+ (Negative); Urine Urobilinogen Negative (Neg - 1+)
[2024-12-15 02:01] LABS: Urine Mucus Moderate
[2024-12-15 02:04] LABS: Urine Bacteria Moderate (Negative)
[2024-12-15 02:06] LABS: Amphetamines Negative (Negative); Barbiturates Negative (Negative); Benzodiazepines Positive (Negative); Buprenorphine Negative (Negative); Cocaine Negative (Negative); Marijuana Negative (Negative); Methadone Negative (Negative); Methamphetamines Negative (Negative); Opiates Negative (Negative); Phencyclidine Negative (Negative); Tricyclic Antidepressants Negative (Negative)
[2024-12-15 02:15] LABS: Fentanyl, Urine Negative (Negative)
[2024-12-15 05:59] LABS: Blood Urea Nitrogen 20 mg/dl (9-20); Calcium 9.7 mg/dl (8.4-10.2); Carbon Dioxide 27 mmol/L (22-30); Chloride 101 mmol/L (98-107); Estimated Creatinine Clearance 100 ml/min; Glucose 205 mg/dl (70-99); Potassium 4.3 mmol/L (3.5-5.1); Sodium 136 mmol/L (135-145); eGFR > 60.00
[2024-12-15 06:02] LABS: Hematocrit 41.5 % (39.0-52.0); Mean Corp Hgb Conc. 36.1 g/dL (33.0-37.0); Mean Corpuscular Hgb 33.1 pg (27.0-31.0); Mean Corpuscular Volume 91.6 fL (80.0-94.0); Mean Platelet Volume 10.5 fL (7.4-10.4); Platelet Count 324 10^3/uL (130-400); Red Blood Cell Count 4.53 10^6/uL (4.70-6.10); Red Cell Dist. Width 12.3 % (11.5-14.5); White Blood Cell Count 8.3 10^3/uL (4.8-10.8)
[2024-12-15 06:05] LABS: Glucose - Point of Care 196 mg/dl (70-99)
--- NOTE | 2024-12-15 06:22 | PTCARENOTE ---
Patient cardizem gtt titrated down to 2.5 earlier. Discussed with LEONA Hugo, turned off at this time as patients in sinus manan, sustained in the 50's. BG 196, no coverage ordered on admission, LEONA notified as well. Will update oncoming RN
and continue to monitor patient closely.
--- NOTE | 2024-12-15 07:56 | W.PN.HOSP.TC ---
Today's Communication/Plan
-
Psychiatry consult
TSH
Assessment / Plan
Assessment / Plan
Gen-AAOx3, NAD
HEENT-NC, AT, anicteric, clear oral mm
Neck-supple
CV-reg, no M, +S1/S2
Lungs-clear B/L
Abd-soft, NT, ND
Ext-no edema
Musculoskeletal-no cyanosis, clubbing
Skin-warm and dry
Neuro-grossly non-focal
Psych-calm, cooperative
Rapid new onset atrial fibrillation -converted to sinus rhythm last night. Hemodynamically stable. Diltiazem drip stopped due to bradycardia. Currently on Eliquis, anticipate discharge on aspirin if okay with cardiology. Can hold off on
cardioversion given sinus rhythm.
Check TSH.
Major depression -suicidal ideation. Consult psychiatry. He does have a therapist.
Hyponatremia -present on admission. Resolved.
DM2 with hyperglycemia -hemoglobin A1c pending. Glucose 205 this morning. On semaglutide at home.
GERD -omeprazole.
Hyperlipidemia -rosuvastatin.
Alcohol use disorder -abstinence stressed.
Tobacco dependence -abstinence stressed.
Full code
Dispo -await psychiatry input. Await cardiology input. Anticipate discharge later today if stable.
Anticipated Discharge: Today
Subjective/Interval History
-
Date of Service: December 15, 2024
Patient seen and examined. No complaints.
Objective Data
-
Labs:
Laboratory Results
12/15/24 12/15/24
00:15 05:00
WBC 8.3
Hgb 15.0
Hct 41.5
Plt Count 324 D
PT 15.5 H
INR 1.20
APTT 32.1
Sodium 136
Potassium 4.3
Chloride 101
Carbon Dioxide 27
BUN 20
Creatinine 0.8
Glucose 205 H
Calcium 9.7
Vital Signs:
Vital Signs
Temp Pulse Resp BP Pulse Ox
98.6 F 56 11 106/59 95
12/15/24 04:35 12/15/24 06:30 12/15/24 06:30 12/15/24 06:30 12/15/24 06:30
I&O
12/14/24 12/15/24 12/16/24
06:59 06:59 06:59
Intake Total 40 / 40
Output Total 100 / 100
Balance -60 / -60
Review of Systems
-
History Source: Patient
All other systems: Reviewed and negative
[2024-12-15 08:16] LABS: Glucose - Point of Care 161 mg/dl (70-99)
[2024-12-15] MEDS: NICODERM TRANSDERMAL 21 MG TRANSDERM (08:44)
[2024-12-15] MEDS: THERAGRAN 1 TABLET PO (08:45)
[2024-12-15] MEDS: FOLVITE 1 MG PO (08:45)
[2024-12-15] MEDS: PROTONIX 40 MG PO (08:45)
[2024-12-15] MEDS: ELIQUIS 5 MG PO (08:45)
[2024-12-15] MEDS: PROZAC 20 MG PO (08:45)
[2024-12-15] MEDS: THIAMINE INJECTION 200 MG IV (08:46)
[2024-12-15] MEDS: ATIVAN 0.25 MG PO (08:46)
--- NOTE | 2024-12-15 09:37 | W.PN.CARDCBS ---
Addendum entered and electronically signed by Nino Douglas MD 12/15/24 15:11:
Attending addendum: Patient seen and examined. PA note reviewed and findings confirmed by me. He is doing well. Flipped back to NSR last night
HgbA1c is 7.2% which changes his [id number] score to 1 and awaiting echocardiogram
He will need to monitor home blood pressures to determine if he is hypertensive as well
For now will plan on 1 month of oral anticoagulation then aspirin 81mg daily. However, I would have a low threshold to maintain Eliquis permanently if affordable given DM
Original Note:
Today's Communication / Plan
-
Cancelled KATT/CV
[id number] score is 1, will plan on Eliquis 5 mg BID for the next month
Start Cardizem CD 120 mg daily now, ordered by me
Impression / Plan
-
PCP: Dr. Dannie Blakely
Card: None
Impression:
Presented to [facility] with unsteady gait and admitted with newly diagnosed A-fib 12/14/2024
Newly diagnosed A-fib with RVR of unclear duration
spontaneously converted to SR on Cardizem gtt 12/14/24 PM
New start to chronic Eliquis OAC
EtOH use disorder, daily drinker
Smoker, now vaping tobacco exclusively
Prediabetes, but now HgbA1c 7.2% which is DM 2
Echo 12/15/2024: Study pending
Plan:
-Patient spontaneously converted to SR overnight with Cardizem gtt and gtt stopped. ECG reviewed by me 12/15/24 is SR and QTc 447 ms.
-Cancelled KATT/CV and ordered a TTE instead
-New to Eliquis 5 mg BID (age 59, Cre 0.8). Patient can use the co-pay card for reduced cost and we will plan on Eliquis for the next month. Long-term his [id number] score is only 1 due to history of newly diagnosed DM2
-HgbA1c 7.3% and he was previously prediabetes, but would now be in the category of DM2
-HR is 67 at rest in SR, will try adding low-dose Cardizem CD 120 mg daily
-Will arrange for cardiology office visit and can perform an outpatient monitor to assess burden of Afib
HPI: Patient came to [facility] today for new symptoms of unsteadiness was found to have newly diagnosed A-fib prompting cardiology consultation. Patient unexpectedly lost his job 2 weeks ago and describes himself as being laid off. About a week ago he
started with increasing stress and saw the nurse through his union who checked his vital signs and told patient they were normal. To help deal with the stress the patient has been exercising more including walking and hiking, but no trouble keeping
up with this activity. Patient denies any CP, DESHPANDE or palpitations. Today the patient was planning on going to the unemployment office to file for benefits and he felt that his stress levels were the highest they have been, while in the shower he
felt a sudden tightness in the back of his neck and felt unsteady. He was able to get out of the shower and then in his car drove to [facility] to get himself some coffee and donuts, but this did not make him feel any better. Patient had ongoing
unsteadiness and so we came to [facility] and was found to be in A-fib with RVR. Incidentally the patient did inform ER staff that he had been dealing with increased depression and anxiety and so this was labeled a 'crisis' visit, but patient says he
actually has resources lined up including starting an intense group therapy session in [place] tomorrow. He is unaware of A-fib and again denies palpitations. No previous cardiology and no previous cardiac testing.
Progress Note - Aquarium Specialist
Subjective
Date of Service: December 15, 2024
He feels much better
Objective
Labs:
12/15/24 05:00
12/15/24 05:00
Labs
Hgb 15.0 g/dL (13.0-18.0) 12/15/24 05:00
Hct 41.5 % (39.0-52.0) 12/15/24 05:00
Plt Count 324 10^3/uL (130-400) D 12/15/24 05:00
PT 15.5 Sec (11.4-14.6) H 12/15/24 00:15
INR 1.20 12/15/24 00:15
APTT 32.1 Sec (23.4-35.0) 12/15/24 00:15
Sodium 136 mmol/L (135-145) 12/15/24 05:00
Potassium 4.3 mmol/L (3.5-5.1) 12/15/24 05:00
BUN 20 mg/dl (9-20) 12/15/24 05:00
Creatinine 0.8 mg/dL (0.7-1.3) 12/15/24 05:00
Glucose 205 mg/dl (70-99) H 12/15/24 05:00
Troponins
12/14/24 12/15/24 12/15/24
18:11 00:15 06:00
Troponin I 0.029 0.020 D Cancelled
Vital Signs and I&O:
Vital Signs
Temp Pulse Resp BP Pulse Ox
98.2 F 56 11 106/59 95
12/15/24 08:00 12/15/24 06:30 12/15/24 06:30 12/15/24 06:30 12/15/24 06:30
Vital Signs
Temp Pulse Resp BP Pulse Ox
98.2 F 56 11 106/59 95
12/15/24 08:00 12/15/24 06:30 12/15/24 06:30 12/15/24 06:30 12/15/24 06:30
Intake & Output
12/13/24 12/14/24 12/15/24 12/16/24
06:59 06:59 06:59 06:59
Intake Total 40 / 40
Output Total 100 / 100
Balance -60 / -60
Physical Exam
Physical Exam
GEN: NAD. AAOx3
HEENT: EOMI
LUNGS: RA. No wheeze
CV: SR on tele. Reg
ABD: ND
EXT: No edema B/L
NEURO: Gross non-focal
SKIN: No rash
[2024-12-15 09:44] LABS: Glycohemoglobin (HgbA1c) 7.3 % (4.0-5.6)
[2024-12-15 09:45] LABS: TSH 1.92 uIU/ml (0.47-4.68)
[2024-12-15] MEDS: NOVOLOG FLEXPEN-LOW RESISTANCE 1 UNITS SC ×3 (09:54→16:53)
--- NOTE | 2024-12-15 10:35 | W.CHA2DS2VAS ---
[id number] Score
Score
Age in Years (65=0, 65-74=1, >/=75=2): <65
Sex (Female=+1): Male
Congestive Heart Failure History (Yes=+1): No
Hypertension History (Yes=+1): No
Stroke/TIA/Thromboembolism History (Yes=+2): No
Vascular Disease History (Yes=+1): No
Diabetes Mellitus (Yes=+1): Yes
Score >/=2 is otherwise an anticoagulation candidate: 1
[2024-12-15] MEDS: CLARITIN 10 MG PO (11:51)
[2024-12-15] MEDS: CARDIZEM CD 120 MG PO (11:51)
--- NOTE | 2024-12-15 11:51 | CM ---
CM following re: discharge planning.
Reviewed pt's chart, met with pt.
Pt is a 59 year old male, admitted with primary dx of A-fib with RVR. PMH includes: depression, GERD, HLD, DM.
Pt reports he lives alone in an apartment, independent [employer]. pt reports he has been for 20 years, has no children. Pt reports he has been dealing with depression for years, recently lost a job he has been worked there for 20 years. Emotional
support offered and provided. Pt reports he is looking for another job and is planning to retire at 60. Pt reports he has 3 beers daily, described himself as a social drinker, declined meeting with [facility]. Pt reports he was a heavy drinker in the
past. Pt reports he enjoys hiking, has psychotherapist for 20 years and will start IOP in [place]. CM provided pt with information and phone number for [facility] and [facility]. Pt reports he will have his employer insurance till
the end of January 2025.
Per Psychiatry - resumptions of IOP recommended.
PCP: Alejo Blakely
[facility].
D/c plan: home with IOP in [place]/[facility]. Pt stated he is expected to get home today.
CM will follwo with discharge plan updates as hospitalization progresses.
[2024-12-15 12:11] LABS: Glucose - Point of Care 173 mg/dl (70-99)
--- NOTE | 2024-12-15 14:01 | CS.PSYCHR ---
Consult Summary - Psychiatry
-
Pt is a 59 yo male with PMH of GERD, HLD, DM; hx of depression, who presented with neck tightness while taking shower, feeling very unsteady. Pt admitted for new diagnosis A fib. Pt is under stress since he lost his job December 04. Pt reportedly
felt very depressed on Saturday, had thoughts of hanging himself from a tree, but he was able to reach help line and was scheduled to start an IOP in [place] Tues/today. Pt reports feeling more depressed, waking early in the AM with negative
ruminating thoughts. Pt was hiking, was at his favorite spot to enjoy the outdoors, had a rope in his pack and looked up at tree branch. Pt states he told himself 'it's crazy', called his health plan and was connected with a Crisis line. Pt
states he talked with his long-time therapist that day, had a session the next day/Sat. He attended [employer] on Saturday. Pt states he got rid of the rope, is focused on the future, plan to file for unemployment, then look for a new job. Pt was
considering retiring at 60 and traveling, [place]. Pt reports having 2 to 3 beers in the evening, states plan to cut back.
Psych Hx: no hx of suicide attempt; no inpatient tx. Outpatient therapy since his divorce in 2005. Rx'd Prozac since his divorce, 20 mg QD, as well as Ativan 0.25 mg Daily
Depression/anxiety since divorce in 2005, managed well with above treatment. Pt reports past hx of alcohol abuse, no rehab/treatment
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
Single, living alone. Brother is in a nursing facility with Parkinson's dz
MSE: alert, oriented, calm, cooperative, talkative/engaging. Mood mildly depressed, Affect stable. Pt denies SI/plan/intent. Speech/thought coherent/goal-directed. No signs of psychosis. Insight appears good
Imp: Unspecified depressive d/o, situational, with recent suicidal plan. Pt denies SI since admission at
Unspecified anxiety
Rec: Pt appears stable for discharge when medically cleared; with referral to IOP (Intensive Outpatient Program) at either [facility] or [facility]
would continue established dose of Prozac, Ativan
--- NOTE | 2024-12-15 14:39 | PTCARENOTE ---
pt having echo at bedside
--- NOTE | 2024-12-15 16:05 | W.PN.UPDATE ---
Update Note
Progress Note Update
Updated patient with echo result. TT to hospitalist attending for d/c and attempting to work through discharge process.
--- NOTE | 2024-12-15 16:19 | W.DS.TRANS ---
DC Summary - Integrity Analyst
-
Discharge Instructions:
Discharge Diagnosis/Procedures Rapid atrial fibrillation with continuous
conversion to regular sinus rhythm
Diet Diabetic, Carb Controlled
Activity As tolerated
Driving Restrictions As prior to admission
Bathing Restrictions None
Instructions:
Stand-Alone Forms:
Changes to Home Medications: Yes
Discharge Medications:
DC Medications w/original date entered in [facility]
fluoxetine 20 mg capsule 20 mg PO DAILY Mental Health/Anxiety 08/03/12
lorazepam 0.5 mg tablet 0.25 mg PO DAILY Mental Health/Anxiety 08/03/12
diphenhydramine HCl 25 mg capsule (Benadryl) 25 mg PO DAILY Allergies 12/14/24
omeprazole magnesium 20 mg tablet,delayed release (Prilosec OTC) 20 mg PO DAILY Gastrointestinal Issue 12/14/24
rosuvastatin 10 mg tablet 10 mg PO HS High Cholesterol 12/14/24
semaglutide 7 mg tablet (Rybelsus) 7 mg PO DAILY Diabetes 12/14/24
therapeutic multivitamin 1 tab PO DAILY Supplement 12/14/24
apixaban 5 mg tablet (Eliquis) 5 mg PO BID Blood clot prevention/tx #60 tabs 12/15/24
diltiazem HCl 120 mg capsule,extended release 24 hr 120 mg PO DAILY #30 caps 12/15/24
folic acid 1 mg tablet 1 mg PO DAILY #30 tabs 12/15/24
thiamine mononitrate (vit B1) 100 mg tablet 100 mg PO BID #60 tabs 12/15/24
Home Medication Changes
New to Eliquis, thiamine, folic acid and Cardizem CD.
Pending Results: No
[2024-12-15 16:56] LABS: Glucose - Point of Care 175 mg/dl (70-99)
--- NOTE | 2024-12-15 18:38 | PTCARENOTE ---
Pt cleared for discharge to home, INT d/c'd. All home meds returned from pharmacy to pt. Discharge instructions reviewed. VSS.
== END 2024-12-15 18:51 | disposition home or self-care (01) | DRG 881 ==
LOC: ICU 18:06
PROVIDERS: Emergency Medicine; Registered Nurse; ADMITTING PHYSICIAN Internal Medicine; ATTENDING PHYSICIAN Hospitalist; CONSULT PHYSICIAN Internal Medicine Interventional Cardiology; CONSULT PHYSICIAN Psychiatry & Neurology Psychiatry; EMERGENCY PHYSICIAN Student in an Organized Health Care Education/Training Program; FAMILY PHYSICIAN Family Medicine
DX: F32.9 Major depressive disorder, single episode, unspecified (principal); E87.1 Hypo-osmolality and hyponatremia; R45.851 Suicidal ideations; I48.91 Unspecified atrial fibrillation; R42 Dizziness and giddiness; E78.5 Hyperlipidemia, unspecified; E11.65 Type 2 diabetes mellitus with hyperglycemia; F17.290 Nicotine dependence, other tobacco product, uncomplicated; F41.9 Anxiety disorder, unspecified; D72.829 Elevated white blood cell count, unspecified; F10.20 Alcohol dependence, uncomplicated; K21.9 Gastro-esophageal reflux disease without esophagitis; Z60.2 Problems related to living alone; Z56.0 Unemployment, unspecified; Z83.3 Family history of diabetes mellitus; Z82.0 Family history of epilepsy and other diseases of the nervous system
CPT/HCPCS: 80048; 80143; 80179; 80306; 80307; 81003; 81015; 82010; 82077; 82962; 82977; 83036; 83735; 84100; 84443; 84484; 85025; 85027; 85610; 85730; 93005; 93306; 96374; 96376; 99285

== ENCOUNTER 2025-02-12 10:14 | Emergency (ER) | payer BC, SELFPAY ==
[2025-02-12 10:38] VITALS: BP 156/87
--- NOTE | 2025-02-12 13:07 | ED.GENMED ---
History of Present Illness
General
Chief Complaint: Bowel Problem
Source: patient
Exam Limitations: none
Time Seen by Provider: 02/12/25 12:56
History of Present Illness
History of Present Illness:
59-year-old male presents with constipation. He has had difficulty moving his bowels for the past 3 weeks. He strains significantly last evening and had just small pieces come out. He has been using senna and Dulcolax without relief but yesterday
took magnesium citrate. There is no vomiting. No significant abdominal pain. No fever. He states since waiting in the waiting room he did have a bowel movement in the waiting room and is feeling better.
Past History
Past History
ED Past Medical History: None
ED Past Surgical History: None
Social History
Tobacco: Smoker
Personal: Single
Living: with family
Phy Exam
Physical Exam
Physical Exam:
General: Well-appearing male no acute respiratory distress HEENT: Normocephalic atraumatic heart: Regular rate and rhythm
Lungs: Clear no wheeze abdomen soft nontender nondistended normal bowel sounds
Extremities: No cyanosis
Course
Orders/Labs/Results
Orders:
Orders
02/12/25 13:04
CR Obstruct Series W/pa Chest Urgent
Comment:
Reason For Exam: constipation
Vital Signs
Initial and Last Documented VS:
Initial Vital Signs
Temp Pulse Resp BP Pulse Ox
98.3 F 82 16 156/87 97
02/12/25 10:38 02/12/25 10:38 02/12/25 10:38 02/12/25 10:38 02/12/25 10:38
Last Documented Vital Signs
Temp Pulse Resp BP Pulse Ox
98.3 F 82 16 156/87 97
02/12/25 10:38 02/12/25 10:38 02/12/25 10:38 02/12/25 10:38 02/12/25 10:38
MDM/Problems Addressed
Differential Diagnosis Includes:
Patient's initial reason for coming here was constipation however he had a large bowel movement in the waiting room and is feeling better. Abdomen exam benign will check obstruction series.
*Critical Care Note
Total Time (30-74mins, 75-104mins- exclusive of procedures): Not Applicable
Update Note
Update Note:
X-ray shows nonobstructive bowel gas pattern. Patient did have a bowel movement here. No indication for any further intervention for for discharge. Advise continued use of MiraLAX
ED Attending Note
-
Portions of this chart may have been created with voice recognition software.� Occasional wrong word or��sound alike� substitutions may have occurred due to the inherent limitations of voice recognition software.
Discharge Plan
Departure
Patient Disposition: Home (Routine Discharge)
Date of Disposition: 02/12/25
Time of Disposition: 15:00
Patient with high blood pressure during this ER visit?: No
Discharge Problem:
Constipation
Instructions: Constipation, Adult (DC)
Prescriptions:
No Action
lorazepam 0.5 mg Tablet
0.25 mg PO DAILY
fluoxetine 20 mg Capsule
20 mg PO DAILY
therapeutic multivitamin Tablet
1 tab PO DAILY
diphenhydramine HCl [Benadryl] 25 mg Capsule
25 mg PO DAILY
rosuvastatin 10 mg Tablet
10 mg PO HS
omeprazole magnesium [Prilosec OTC] 20 mg Tablet,Delayed Release (Dr/Ec)
20 mg PO DAILY
Rybelsus 7 mg Tablet
7 mg PO DAILY
Eliquis 5 mg Tablet
5 mg PO BID Qty: 60 6RF
diltiazem HCl 120 mg Capsule,Extended Release 24hr
120 mg PO DAILY Qty: 30 0RF
folic acid 1 mg Tablet
1 mg PO DAILY Qty: 30 0RF
thiamine mononitrate (vit B1) 100 mg Tablet
100 mg PO BID Qty: 60 0RF
Referrals:
Alejo Blakely DO [Family Provider, Family Practice]
Activity Restrictions/Additional Instructions:
Continue drinking plenty of fluids and use MiraLAX daily. Return here if worse otherwise follow-up with your doctor.
Interventions
Interventions:
*Risk Screen - Suicide Last Done: 02/12/25 14:10
*General Assessment Last Done: 02/12/25 14:10
*Neglect/Abuse Screening Last Done: 02/12/25 14:10
*ED- Fall Risk Assessment Last Done: 02/12/25 14:10
*ED COVID-19 Vaccine History Last Done: 02/12/25 14:10
YS-Uvdyfb-Eeuokjoxss Assessment Last Done: 02/12/25 14:10
Discharge Date and Time
Print Language: [place]
== END 2025-02-12 15:40 | disposition home or self-care (01) ==
LOC: EMR 10:14
PROVIDERS: EMERGENCY PHYSICIAN Emergency Medicine; FAMILY PHYSICIAN Family Medicine
DX: K59.00 Constipation, unspecified (principal); F17.200 Nicotine dependence, unspecified, uncomplicated
CPT/HCPCS: 99283; 74022